=== PATIENT | male | born 1970 | race Caucasian/White ===

== ENCOUNTER → 2017-02-12 | Outpatient (CLI) | payer OTHER ==
[~2017-02-12] MED LIST: HUMALOG100 U/ML SC; LANTUS100 U/ML SC; LEVEMIR10 ML SC
== END | disposition home or self-care (01) ==
LOC: RESCLI 03:22
DX: E11.9 Type 2 diabetes mellitus without complications (principal); Z79.4 Long term (current) use of insulin